=== PATIENT | female | born 1985 | race Caucasian/White ===

== ENCOUNTER 2025-09-08 15:43 | Outpatient (CLI) | payer BC, SELFPAY ==
--- NOTE | 2025-09-08 16:00 | CRLHL7_ITS ---
For Patients: As a result of the Century Cures Act, medical imaging exams and procedure reports are released immediately into your electronic medical record. You may view this report before your referring provider. If you have questions, please contact your health care provider. INDICATION: Check viability and dates TECHNIQUE: Transabdominal and transvaginal scanning was performed. Transvaginal scanning was performed to better evaluate the IUP and adnexa. Ovarian blood flow was evaluated with color-flow and pulsed Doppler. COMPARISON: None FINDINGS: There is a living IUP with gestational age of 9 weeks 1 day by LMP and today`s crown-rump length. EDC 04/12/2026. The embryonic heart rate is measured at 178 beats per minute. The placenta is not yet formed. No subchorionic hemorrhage is evident. Apparent lower anterior fibroid measuring 1.2 x 1.1 x 0.7 cm is demonstrated. The ovaries are normal in size and shape. The right ovary measures 2.7 x 1.9 x 1.4 cm and the left 3.2 x 2.8 x 2.6 thing cm. Ovarian blood flow is demonstrated with color-flow and pulsed Doppler. No adnexal mass or free fluid is apparent. IMPRESSION: 1. Living IUP with gestational age of 9 weeks 1 day by LMP and today`s crown-rump length. EDC 04/12/2026. 2. No complication evident. 3. Apparent lower anterior uterine fibroid measuring 1.2 x 1.1 x 0.7 cm. Dictated by Norberto Seth MD @ 09/12/2025 11:49:51 AM (Electronically Signed)
== END 2025-09-08 15:44 | disposition home or self-care (01) ==
LOC: US 15:44
PROVIDERS: Visit Provider Physician Assistant
DX: Z34.91 Encounter for supervision of normal pregnancy, unspecified, first trimester (principal); D25.9 Leiomyoma of uterus, unspecified
CPT/HCPCS: 76817; 83021; 86703; 86704; 86706; 86762; 86780; 86787; 86803; 86850; 86900; 86901; 87086; 87340; 87491; 87591

== ENCOUNTER 2025-09-08 16:51 | Outpatient (CLI) | payer BC, SELFPAY ==
[2025-09-08 22:05] LABS: Chlamydia DNA Amplified* NOT DETECTED (No Detected); GC DNA Amplified* NOT DETECTED (No Detected)
== END 2025-09-08 16:52 | disposition home or self-care (01) ==
PROVIDERS: Visit Provider Physician Assistant
DX: Z34.91 Encounter for supervision of normal pregnancy, unspecified, first trimester (principal)
CPT/HCPCS: 83020; 83021; 85660; 86703; 86704; 86706; 86762; 86780; 86787; 86803; 86850; 86900; 86901; 87086; 87340; 87491; 87591